=== PATIENT | male | born 1935 | race Caucasian/White ===

== ENCOUNTER → 2016-09-27 | Outpatient (REF) | payer MEDICARE, BC ==
[~2016-09-27] MED LIST: /WARF4TA; CARD240T3; DIGO0.12 PO; DIGO0.126; GAS-80CH; HUMA100I5 SC; HUMA75VL; KLOR1TAB77 PO; KRIL300C PO; LASI80TA; LEVEINJ SC; LISI40TA; MIRA3350 PO; PROA1AER IN; TORS100T PO; TYLE325T5 PO; VITA100037 PO; WARF-18 PO; WARF-23 PO; levemir
== END ==
LOC: M LAB REF 16:38
PROVIDERS: ATTEND Internal Medicine
DX: I48.2 Chronic atrial fibrillation (principal)

== ENCOUNTER → 2017-03-09 | Outpatient (CLI) | payer MEDICARE, BC ==
[~2017-03-09] MED LIST changes: -PROA1AER IN; +PROAAER10 IN; -VITA100037 PO; +VITA100067 PO
--- NOTE | 2017-03-09 15:42 | REP ---
Left elbow four views: There is mild osteoarthritis. There is a joint effusion. There is no fracture or dislocation. No calcifications or foreign bodies. Signed by Camilo Conway MD 03/09/2017 03:32 P
== END ==
LOC: M WUC 13:10
PROVIDERS: ATTEND Physician Assistant
DX: S50.02XA Contusion of left elbow, initial encounter (principal); X58.XXXA Exposure to other specified factors, initial encounter; Y92.89 Other specified places as the place of occurrence of the external cause; Y93.89 Activity, other specified; Y99.8 Other external cause status

== ENCOUNTER 2017-06-27 15:09 | Inpatient (IN) | payer MEDICARE, BC ==
[~2017-06-27] VITALS: Ht 188 cm; Wt 83.8 kg
[2017-06-27] MEDS ORDERED: XARE20TA PO (15:35)
[2017-06-27] MEDS ORDERED: LINZ290C PO (15:39)
[2017-06-27 16:57] LABS: BASO % 0.1 % (0.0-1.0); IMMATURE GRANULOCYTE % 0.3 % (0-0); LYMPH # 0.3 10^3/uL (1.5-4.5); LYMPH % 2.3 % (24.0-44.0); MEAN CORPUSCULAR VOLUME 96.7 fl (80.0-96.0); MONO % 7.1 % (0.0-5.0); NEUTROPHILS # 12.8 10^3/uL (1.8-7.7); NEUTROPHILS % 90.2 % (36.0-66.0); PLATELET COUNT, AUTOMATED 176 10^3/uL (150-450); WHITE BLOOD COUNT 14.2 10^3/uL (4.0-10.0)
[2017-06-27 17:10] LABS: ALBUMIN 4.4 GM/DL (3.2-5.2); ALBUMIN/GLOBULIN RATIO 1.13 (1.00-1.93); BILIRUBIN,DIRECT 0.3 MG/DL (0.0-0.2); BILIRUBIN,TOTAL 0.9 MG/DL (0.2-1.0); CREATININE FOR GFR 1.46 MG/DL (0.70-1.30); GLOMERULAR FILTRATION RATE 49.1 (>35); TOTAL PROTEIN 8.3 GM/DL (6.4-8.2)
[2017-06-27] MEDS ORDERED: NS 1,000 ML IV ONE (17:45)
[2017-06-27] MEDS ORDERED: D5W/0.45% SODIUM CHLORIDE 1,000 ML IV SCH (17:45)
[2017-06-27] MEDS ORDERED: IPRATROPIUM 0.5MG/ALBUTEROL 2.5MG INH SOL UD 3ML (DUONEB)(J7620) NEB ONE (18:00)
--- NOTE | 2017-06-27 18:03 | REP ---
ABDOMEN, TWO VIEWS: HISTORY: Distention. There is marked distention of the colon. There are no air fluid levels. There is no pneumoperitoneum. IMPRESSION: Findings consistent with megacolon. Signed by Larry Dillon MD 06/27/2017 06:14 P
--- NOTE | 2017-06-27 18:16 | REP ---
CHEST, ONE VIEW: HISTORY: Shortness of breath. A single lateral radiograph was obtained. There is diffuse distension of the visualized colon. 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 Signed by Larry Dillon MD 06/27/2017 06:27 P
[2017-06-27] MEDS ORDERED: TORS20TA2 PO (18:45)
--- NOTE | 2017-06-27 19:30 | REPUSA ---
CT of the abdomen and pelvis without contrast Clinical statement: Pain. Possible volvulus. Technique: Multiple axial CT images were obtained from the base of the lungs to the floor of the pelv is utilizing 5 mm axial slices without administration of contrast. Coronal and sagittal reconstructio ns were also obtained. Comparison: 03/18/2014. Findings: Chest: The visualized lung bases demonstrate bilateral lower lobe infiltrates. Abdomen: The kidneys are normal in size bilaterally. There is no evidence of hydronephrosis or nephro lithiasis. The liver, spleen, pancreas, gallbladder and adrenal glands are unremarkable. The aorta de monstrates normal caliber and contour. There is no abdominal lymphadenopathy or ascites. Pelvis: Severe megacolon with diffuse gaseous distention is noted. Mild amount of stool is seen in th e right colon. A large fluid level is seen in the rectosigmoid colon. A focal site of obstruction is identified. The urinary bladder is within normal limits. There is no pelvic lymphadenopathy or ascite s. The other pelvic structures appear unremarkable. Bones: There are no suspicious osseous abnormalities seen. Impression: 1. Severe gases distention of the colon, consistent with megacolon. These findings are similar to the prior study. Air fluid level is seen in the rectosigmoid colon. No discrete evidence of obstruction or volvulus is seen at the site. Follow-up is recommended as clinically indicated. Barium enema study could be helpful. Colonoscopy may be helpful. 2. Bilateral lower lobe infiltrates.
[2017-06-27] MEDS ORDERED: CEFTRIAXONE SOD 1 GM in APPROPRIATE DILUENT 1 EA IV ONE (19:45)
[2017-06-27] MEDS ORDERED: AZITHROMYCIN INJ 500 MG, VIAL MATE ADAPTER 1 EACH in D5W 250 ML IV ONE (19:45)
[2017-06-27] MEDS ORDERED: ONDANSETRON 4MG/2ML VIAL (J2405) IV PRN (20:15)
[2017-06-27] MEDS ORDERED: DEXTROSE 50% 50 ML SYRINGE IV PRN (20:15)
[2017-06-27] MEDS ORDERED: GLUCOSE 4 GM CHEW TABLET PO PRN (20:15)
[2017-06-27] MEDS ORDERED: MORPHINE 2 MG/ML 1ML SYRINGE IV PRN (20:15)
[2017-06-27] MEDS ORDERED: GLUCAGON FOR INJ 1 MG VIAL (J1610) SC PRN (20:15)
[2017-06-27] MEDS ORDERED: ALBUTEROL SULFATE 2.5 MG/0.5 ML INH NEB SOLN NEB PRN (20:30)
[2017-06-27] MEDS ORDERED: ALBUTEROL 90 MCG/ACT 8GM HFA INHALER INH PRN (20:30)
--- NOTE | 2017-06-27 21:01 | HPE ---
DATE OF ADMISSION: 06/27/2017 PRIMARY CARE PROVIDER: Dr. Townsend HISTORY OF PRESENT ILLNESS: The patient is an 82-year-old male with a past medical history significant for chronic kidney disease, stage III, atrial fibrillation, diabetes, obstructive sleep apnea (BEN), bladder cancer status post transurethral resection of bladder tumor (TURBT) presented to [facility] on 06/23/2017 for worsening abdominal distention. Per patient, since 1-1/ 2 weeks ago patient started to notice his abdomen started to increase in size. Patient also started to notice some liquid stool for the last week, and patient also started to complain about right-sided abdominal pain. Due to abdominal distention, patient also noted to have increased shortness of breath. Later on, patient also started to have colored sputum production, which is not normal for him. Patient denies any recent antibiotic use. Denied any fevers or chills. Similar episode of abdominal distention occurred in the past. 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 Patient had a colonoscopy with suction performed during hospitalization stay. PAST MEDICAL HISTORY: 1. Chronic kidney disease, stage III. 2. Atrial fibrillation, on digoxin and Xarelto. 3. Diabetes. 4. History of high-grade bladder cancer in 2008 status post TURBT and BCG induction. 5. BEN, not compliant with continuous positive airway pressure (CPAP). 6. Diabetic neuropathy. 7. Basal cell on the nose. 8. Severe aortic stenosis, echocardiogram done in February 2014. PAST SURGICAL HISTORY: 1. Appendectomy. 2. TURBT. HOME MEDICATIONS: - insulin Levemir 12 units subcutaneous every evening - potassium chloride 600 mg by mouth daily - Xarelto 20 mg by mouth daily - torsemide 140 mg by mouth daily - Linzess 290 mcg by mouth daily - digoxin 0.125 mg by mouth daily SOCIAL HISTORY: Quit smoking approximately 30 years ago. No alcohol use. No recreational drug use. Per record, patient DO NOT RESUSCITATE, DO NOT INTUBATE, confirmed with his daughter, who is also present at the bedside. REVIEW OF SYSTEMS: GENERAL: Denies any fevers or chills. HEENT: No vision change. No auditory changes. CARDIOVASCULAR: No chest pain. No palpitations. History of atrial fibrillation. RESPIRATORY: Complained about increased shortness of breath with sputum production, which is not normal for him. GASTROINTESTINAL: Worsening abdominal distention in the last 1-1/2 weeks, now complains about completely liquid stool. No recent antibiotic use. Similar episode occurred in the past. MUSCULOSKELETAL: Denies any new joint pain or abdominal pain. NEUROLOGIC: History of diabetic neuropathy. OBJECTIVE: VITAL SIGNS: Temperature is 97.8, pulse is 105, respirations 21, blood pressure is 129/80, pulse oximetry 91% in room air. GENERAL: Mild to moderate distress secondary to severe abdominal distention. Alert and oriented times three. HEENT: Significantly decreased voice. Otherwise Normocephalic, atraumatic. CARDIOVASCULAR: Irregularly irregular, intermittent tachycardia. RESPIRATORY: Positive crackles in the bilateral lung base. No wheezes appreciated. ABDOMEN: Severe abdominal distention. Tenderness to palpation. Hypoactive bowel sounds. EXTREMITIES: Some venous stasis changes, bilateral lower extremities. No significant swelling. NEUROLOGIC: Sensation to fine touch grossly intact. LABORATORY DATA: WBC is 14.2, hemoglobin 15.4, hemoglobin 46.6, platelet count is 176. Sodium is 142, potassium 4, chloride 99, carbon dioxide is 36, BUN 35, creatinine 1.46, GFR is 49.1, fasting glucose 193, calcium 10. Total bilirubin 0.9, direct bilirubin 0.3, AST 17, ALT is 22, alkaline phosphatase is 80, total CK 72, troponin I is 0.05, total protein is 8.3, albumin 4.4. IMAGING STUDIES: Abdominal x-ray showed findings consistent with megacolon. CT abdomen and pelvis without contrast showed severe gas and distention in the colon consistent with varsha colon. No discrete evidence of obstruction or volvulus is seen at the site. Bilateral lower lobe infiltrate. ASSESSMENT AND PLAN: 1. Severe abdominal distention. Patient admitted to medical/surgical floor under inpatient status. General surgery, Dr. Whittington, has been consulted, who recommends neostigmine; however, patient will start the trial when patient arrives to progressive care unit (PCU), because this medication carries significant risk of bradycardia. Currently patient is still in emergency room. Patient is placed nothing by mouth. Multiple attempts of nasogastric (NG) tube have failed. There is a possibility patient may benefit from a colonoscopy. 2. Atrial fibrillation. Continue digoxin. Patient is currently nothing by mouth. Xarelto on hold. Patient will be on therapeutic dose of Lovenox. 3. Bilateral lower lobe infiltrate. Followup with sputum samples. Followup with blood cultures. Patient empirically started on Rocephin and azithromycin. 4. Megacolon with liquid stool. No recent antibiotic use. Followup with a gastrointestinal (GI) panel. 5. Chronic kidney disease, stage III. Continue to monitor. 6. Diabetes. Currently nothing by mouth. Continue sliding scale every 6 hours. 7. Patient has history of high-grade bladder cancer status post transurethral resection of bladder tumor (TURBT) and BCG induction. 8. Obstructive sleep apnea (BEN), noncompliant with CPAP, on BEN protocol. 9. Diabetic neuropathy. 10. Deep vein thrombosis (DVT) prophylaxis, on Lovenox. Addendum Patient is not able to transferred to PCU room and he continues staying in critical room in ED with cardiac telemetry. Neostigmine is transfusing over 17min. Near the end of transfusion, patient developed bradycardia with heart rate around 50. One dose of atropine was given. Since then, patient heart rate has returned to his baseline average. I have been present in the ED for 45 minutes since the transfusion. MTDD
[2017-06-27 21:05] LABS: MAGNESIUM LEVEL 2.3 MG/DL (1.8-2.4)
[2017-06-27] MEDS ORDERED: ATROPINE SULF 1MG/10ML SYRINGE (J0461) IV PRN (21:15)
[2017-06-27] MEDS ORDERED: NEOSTIGMINE METHYLSULFATE INJ 2 MG in NS 50 ML IV ONE (21:15)
[2017-06-27 21:33] LABS: ERYTHROCYTE SEDIMENTATION RATE 4 mm/hr (0-20)
[2017-06-27] MEDS: NS 1,000 ML IV SCH (21:48)
[2017-06-27] MEDS: ENOXAPARIN 80 MG/0.8 ML SYRINGE (J1650) SC SCH (21:48)
--- NOTE | 2017-06-28 04:09 | CR.PDOC ---
General Surgery Consultation Date of Consultation 06/28/17 History and Physical CONSULT REPORT FOR: Ashely Vinson DO REASON FOR CONSULTATION: abdominal distention HISTORY OF PRESENT ILLNESS: Patient is an 82-year-old male who presented with one and a half week's history of increasing abdominal distention with resulting discomfort secondary to the abdominal distention. Patient has had previous episodes of similar symptoms. 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 He underwent decompression colonoscopy. Since then has had intermittent problems with periods of abdominal distention. His daughter reports that he has been at this point incontinent to stool and urine and is not sure whether he is able to move his bowels regularly. He had previously seen Dr. Melendrez in the clinic was recommended Linzess with varying results. Since the colonoscopy in 2008 has not had any other workup for this problem. The colonoscopy at that time was unprepped. He has had a previous colonoscopy [place] [address] Gutierrez. This current problem apparently has started nearly 2 weeks now with increasing distention, discomfort from the distention, shortness of breath secondary to the abdominal distention. Patient denies any cramping or abdominal pain though mostly discomfort is on the right lower quadrant area. He is also reporting some increased sputum production, productive cough for the past week. He denies any fevers or chills. No gross bleeding with bowel movements reported. He still apparently lives mainly independently close to the house of his daughter though for the past few months have been easily tired. He is able to ambulate, get out of the house. He is not on any new medications that with a prompted this symptom. Not on any chronic narcotics, antipsychotic medications, central acting medications. PAST MEDICAL HISTORY: 1. Chronic kidney disease, stage III. 2. Atrial fibrillation, on digoxin and Xarelto. 3. Diabetes. 4. History of high-grade bladder cancer in 2008 status post TURBT and BCG induction. 5. BEN, not compliant with continuous positive airway pressure (CPAP). 6. Diabetic neuropathy. 7. Basal cell on the nose. 8. Severe aortic stenosis, echocardiogram done in February 2014. PAST SURGICAL HISTORY: INCLUDES: 1. Appendectomy. 2. TURBT. 3. Unprepped colonoscopy for abdominal decompression [address] Owen ALLERGIES: Please see below. HOME MEDICATIONS: Please see below. REVIEW OF SYSTEMS: GENERAL: No abnormal unexplained weight loss. HEENT: Denies blurred vision and double vision. Denies ear symptoms. Denies hoarseness. NECK: Denies any neck pain]. CARDIOVASCULAR: Denies chest pain and palpitations. MUSCULOSKELETAL: Denies arthralgias, back pain and thrombophlebitis. SKIN: Denies rash. NEUROLOGIC: Denies headache, stroke and transient ischemic attack. PSYCHIATRIC: Denies anxiety and depression. ENDOCRINE: Denies thyroid disease. HEMATOLOGY/ONCOLOGY: Denies bleeding or clotting disorder. Patient on Xarelto for atrial fibrillation HEART: Denies any chest pains, palpitations, paroxysmal dyspnea, orthopnea. Reports history of CHF. On Xarelto for chronic atrial fibrillation PULMONARY: Reports productive sputum for the past week. GASTROINTESTINAL: See HPI. GENITOURINARY: History of bladder cancer, incontinent to urine. ENDOCRINE: Denies polydipsia, polyphagia, polyuria, heat or cold intolerance. INFECTIOUS: No recent antibiotic use though increased productive sputum. NUTRITION: Fair appetite. PHYSICAL EXAMINATION: VITALS SIGNS: Please see below. GENERAL APPEARANCE:Patient seen, laying in bed, awake, alert, and oriented. Mildly uncomfortable and short of breath secondary to coughing and abdominal distention SKIN: Warm and dry HEENT: Normocephalic, atraumatic. Mildly pale palpebral conjunctiva, anicteric sclerae. Lips and mucosa appear dry NECK: Supple, no thyromegaly. No obvious jugular venous distention. LUNGS: Clear to auscultation bilaterally. No wheezing appreciated. HEART: No chest wall abnormalities. Irregular heart rate. ABDOMEN: Abdomen is , markedly distended, thin abdominal wall. He has a right lower quadrant vertical incision from previous appendectomy. No umbilical or groin hernias. Tympanitic to percussion. Tensely distended minimal discomfort with palpation centered on the right lower quadrant area and no rebound or guarding EXTREMITIES: Extremities have no deformities. Mild edema ANCILLARIES: . LABORATORY DATA: Please see below. IMAGING STUDIES: . CT abdomen and pelvis 1. Severe gases distention of the colon, consistent with megacolon. These findings are similar to the prior study. Air fluid level is seen in the rectosigmoid colon. No discrete evidence of obstruction or volvulus is seen at the site. Follow-up is recommended as clinically indicated. Barium enema study could be helpful. Colonoscopy may be helpful. 2. Bilateral lower lobe infiltrates. IMPRESSION AND PLAN: . 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 He did have previous episodes of severe abdominal distention probably the admission in 2008. He has not had a full workup on the reason why he appears to be prone to colonic distention. I recommend doing a noncontrast CT for now mainly to rule out volvulus though on review of the abdominal x-ray, this does not have the typical picture of volvulus and there is also some small bowel distention. Given patient's heart abdominal distention, recommend trial of neostigmine to see if he will be able to at least partially decompress. He needs to be monitored for severe bradycardia with administration of neostigmine. If he does not improve, would do an unprepped colonoscopy to decompress the colon. The main problem given his medical comorbidities is how to prevent this from happening. Given severe aortic stenosis he will not be a candidate for general anesthesia , abdominal surgery After discussion with the hospitalist, he was given neostigmine. Unfortunately though he was given as an IV drip instead of an IV push which probably dedicated its effect. Likewise acting was given to early when his heart rate just came down to 50 and he remained hemodynamically stable. He related the did pass gas and had some liquid stools which afforded him relief. He was scheduled to undergo unprepped colonoscopy with me but after getting some relief with passage of gas patient refused further colonoscopy. I discussed this with his daughter who was at the bedside. For now will give him some bowel regimen to see if we can get him to move his bowels. I think this is all chronic and on good risk patient probably should get further workup for consideration for subtotal colectomy for chronic: Inertia and megacolon as I don't think this will return back to normal. Unfortunately he is not a surgical candidate given her history of severe aortic stenosis. Vital Signs Vital Signs Date Time Temp Pulse Resp B/P (MAP) Pulse Ox O2 Delivery O2 Flow Rate FiO2 06/28/17 00:33 76 98 06/28/17 00:22 120/69 (86) 06/27/17 15:11 97.8 21 Room Air Laboratory Data Labs 24H Laboratory Tests 2 06/27/17 16:39: Immature Granulocyte % (Auto) 0.3H, White Blood Count 14.2H, Red Blood Count 4.82, Hemoglobin 15.4, Hematocrit 46.6, Mean Corpuscular Volume 96.7H, Mean Corpuscular Hemoglobin 32.0, Mean Corpuscular Hemoglobin Concent 33.0, Red Cell Distribution Width 15.0H, Platelet Count 176, Neutrophils (%) (Auto) 90.2H, Lymphocytes (%) (Auto) 2.3L, Monocytes (%) (Auto) 7.1H, Eosinophils (%) (Auto) 0.0, Basophils (%) (Auto) 0.1, Neutrophils # (Auto) 12.8H, Lymphocytes # (Auto) 0.3L, Monocytes # (Auto) 1.0H, Eosinophils # (Auto) 0.0, Basophils # (Auto) 0.0 , Immature Granulocyte # (Auto) 0.0, Nucleated Red Blood Cells % (auto) 0.0, Erythrocyte Sedimentation Rate 4, Anion Gap 7L, Glomerular Filtration Rate 49.1 , Calcium Level 10.0, Magnesium Level 2.3, Aspartate Amino Transf (AST/SGOT) 17 , Alanine Aminotransferase (ALT/SGPT) 22, Alkaline Phosphatase 80, Total Bilirubin 0.9, Direct Bilirubin 0.3H, Total Creatine Kinase 72, Creatine Kinase MB 3.4, Creatine Kinase MB Relative Index 4.72H, Troponin I 0.05, C-Reactive Protein, Quantitative 1.00H, Total Protein 8.3H, Albumin 4.4, Albumin/Globulin Ratio 1.13, Lipase 106 06/28/17 01:00: Bedside Glucose (Misc Panel) 153H CBC/BMP Laboratory Tests 06/27/17 16:39 Red Blood Count 4.82, Mean Corpuscular Volume 96.7 H, Mean Corpuscular Hemoglobin 32.0, Mean Corpuscular Hemoglobin Concent 33.0, Red Cell Distribution Width 15.0 H, Neutrophils (%) (Auto) 90.2 H, Lymphocytes (%) (Auto ) 2.3 L, Monocytes (%) (Auto) 7.1 H, Eosinophils (%) (Auto) 0.0, Basophils (%) ( Auto) 0.1, Neutrophils # (Auto) 12.8 H, Lymphocytes # (Auto) 0.3 L, Monocytes # (Auto) 1.0 H, Eosinophils # (Auto) 0.0, Basophils # (Auto) 0.0 Microbiology Microbiology 06/27/17 Blood Culture, Received Pending 06/27/17 Blood Culture, Received Pending Home Medications Scheduled Digoxin (Digoxin) 0.125 Mg Tab, 0.125 MG PO DAILY, (Reported) Insulin Detemir (Levemir Flexpen) 100 Unit/Ml Inj, 12 UNITS SC QPM, (Reported) Linaclotide Base (Linzess) 290 Mcg Cap, 290 MCG PO DAILY, (Reported) Potassium Chloride (Klor-Con M20) 20 Meq Tabcr, 60 MEQ PO DAILY, (Reported) Rivaroxaban (Xarelto) 20 Mg Tab, 20 MG PO DAILY, (Reported) Torsemide (Torsemide) 100 Mg Tab, 100 MG PO DAILY, (Reported) TAKES WITH 40MG DOSE FOR TOTAL OF 140MG Torsemide (Torsemide) 20 Mg Tab, 40 MG PO DAILY, (Reported) TAKES WITH 100MG DOSE FOR TOTAL 140MG Scheduled PRN Albuterol Sulfate (Proair Hfa) 108 Mcg/Act Aer, 2 PUFFS IN Q4HP PRN for RESPIRATORY DISTRESS, (Reported) Allergies Coded Allergies: Penicillins (Verified Allergy, Unknown, 06/27/17) Pioglitazone (Unverified Allergy, Unknown, NOT KNOWN , 03/18/14) Rosiglitazone (Unverified Allergy, Unknown, UNKNOWN, 03/18/14) RICCARDO CORONA MD Jun 28, 2017 04:09
--- NOTE | 2017-06-28 05:07 | IPN ---
DATE: 06/28/2017 ADDENDUM TO THE HISTORY AND PHYSICAL: Approximately 4 o'clock in the morning, I was called to reevaluate the patient who was being held in the emergency room. The patient's abdominal distention seems to progressively get worse in the few hours since admission. Discussed with the patient and the patient finally agreed for allowing the staff to re-attempt a nasogastric (NG) tube. Shortly after the NG tube was placed and was successful with continuous suction, the patient's abdominal distention showed gradual improvement. Now more air is being suctioned out of his abdomen, the patient stated he feels significant improvement.
[2017-06-28] MEDS: HumaLOG INSULIN (NovoLOG) PER UNIT SC SCH ×5 (05:51→20:28)
[2017-06-28] MEDS ORDERED: HEPARIN SOD (PORCINE) 5000 UNITS/ML VIAL SC SCH (06:00)
--- NOTE | 2017-06-28 06:55 | ECGEPIP ---
Stationary ECG Study [facility] - ED Test Date: 2017-06-27 Pat Name: MARIANO CARLOS Department: Room: [place] [address] Gender: M Talkback Host: : [phone] Requested By: ZOFIA WESLEY Order Number: [id number] Reading MD: Sergey Camarena Measurements Intervals [place] Rate: 74 P: AK: 0 QRS: -26 QRSD: 103 T: 180 QT: 328 QTc: 365 Interpretive Statements ATRIAL FIBRILLATION BORDERLINE LEFT AXIS DEVIATION MODERATE VOLTAGE CRITERIA FOR LVH, CONSIDER NORMAL VARIANT ANTEROLATERAL ST-T WAVE ABNORMALITIES, CONSIDER ISCHEMIA RATE CHANGE COMPARED TO 08/27/13 Electronically Signed On 06-28-2017 6:55:29 EST by Sergey Camarena
[2017-06-28 08:39] LABS: MEAN CORPUSCULAR HEMOGLOBIN 31.7 pg (27.0-33.0); MEAN CORPUSCULAR HGB CONC 32.9 g/dl (32.0-36.5); MEAN CORPUSCULAR VOLUME 96.3 fl (80.0-96.0); PLATELET COUNT, AUTOMATED 157 10^3/uL (150-450); WHITE BLOOD COUNT 9.6 10^3/uL (4.0-10.0)
[2017-06-28] MEDS ORDERED: FLEET OIL RETENTION ENEMA PR SCH (09:00)
[2017-06-28 09:03] LABS: CREATININE FOR GFR 1.34 MG/DL (0.70-1.30); GLOMERULAR FILTRATION RATE 54.2 (>35)
[2017-06-28 09:21] LABS: POTASSIUM SERUM 2.9 MEQ/L (3.5-5.1)
[2017-06-28] MEDS: DIGOXIN 0.125 MG TAB PO SCH (10:18)
[2017-06-28] MEDS: ENOXAPARIN 80 MG/0.8 ML SYRINGE (J1650) SC SCH (10:18)
[2017-06-28 10:23] LABS: MAGNESIUM LEVEL 2.4 MG/DL (1.8-2.4); POTASSIUM SERUM 2.9 MEQ/L (3.5-5.1)
[2017-06-28] MEDS: KCL 10MEQ IN 100ML SWI (KRUN) 10 MEQ in APPROPRIATE DILUENT 1 EA IV SCH ×8 (10:48→14:08)
--- NOTE | 2017-06-28 13:12 | IPNPDOC ---
Subjective Date Seen The patient was seen on 06/28/17. Subjective Chief Complaint/HPI The patient is a 82-year-old male admitted with a reason for visit of Bowel Obstruction;Megacolon. Events since last encounter Patient says that he feels 100% better, Says his abdomen is much less distended and softer. No fever or chills, no abdominal pain today, no nausea or vomiting. Has been passing gas. Has NG tube in place. Does say that he has lost his voice which often happens at home also. Also has some chronic cough and difficult to clear secretions at the throat. Objective Physical Examination General Exam: Positive: Alert, Cooperative, No Acute Distress Eye Exam: Positive: PERRLA, Conjunctiva & lids normal, EOMI, Negative: Sclera icteric ENT Exam: Positive: Atraumatic, Tongue Midline Neck Exam: Positive: Supple, Negative: JVD, thyromegaly Chest Exam: Positive: Clear to auscultation, Normal air movement Heart Exam: Positive: Rate Normal, Regular Rhythm, Normal S1, Normal S2, Negative: Murmurs, Rubs Abdomen Exam: Positive: Normal bowel sounds, Soft, Other (Massive distention still present. ), Negative: Tenderness, Hepatospenomegaly, Mass Extremity Exam: Positive: Normal pulses, Negative: Clubbing, Cyanosis, Edema Skin Exam: Positive: Nl turgor and temperature, Negative: Rash, Breakdown Assessment /Plan Problems (1) Acute dilatation of the colon syndrome Status: Acute Problem Text: will continue with NG to suction, IVF. Allow sips of water by mouth. patient refused colonoscopy , did have a bowel movement so will start on bowel regimen Surgery following. 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 (2) Acute kidney injury (nontraumatic) Status: Acute (3) Aortic stenosis Status: Chronic Problem Text: Has severe aortic stenosis. (4) A-fib Status: Chronic Problem Text: will continue digoxin , will hold xarelto for now. (5) Diabetes Status: Chronic (6) Bladder cancer Status: Chronic Problem Text: History of TURBT and BCG instillation (7) BEN (obstructive sleep apnea) Status: Chronic (8) Pulmonary hypertension Status: Chronic Plan/VTE VTE Prophylaxis Ordered?: Yes VS, I&O, 24H, Fishbone Vital Signs/I&O Vital Signs Date Time Temp Pulse Resp B/P (MAP) Pulse Ox O2 Delivery O2 Flow Rate FiO2 06/28/17 11:52 99.0 84 100 Nasal Cannula 2.0 06/28/17 11:33 104/57 (73) 06/28/17 07:37 20 Laboratory Data 24H LABS Laboratory Tests 2 06/27/17 16:39: Immature Granulocyte % (Auto) 0.3H, White Blood Count 14.2H, Red Blood Count 4.82, Hemoglobin 15.4, Hematocrit 46.6, Mean Corpuscular Volume 96.7H, Mean Corpuscular Hemoglobin 32.0, Mean Corpuscular Hemoglobin Concent 33.0, Red Cell Distribution Width 15.0H, Platelet Count 176, Neutrophils (%) (Auto) 90.2H, Lymphocytes (%) (Auto) 2.3L, Monocytes (%) (Auto) 7.1H, Eosinophils (%) (Auto) 0.0, Basophils (%) (Auto) 0.1, Neutrophils # (Auto) 12.8H, Lymphocytes # (Auto) 0.3L, Monocytes # (Auto) 1.0H, Eosinophils # (Auto) 0.0, Basophils # (Auto) 0.0 , Immature Granulocyte # (Auto) 0.0, Nucleated Red Blood Cells % (auto) 0.0, Erythrocyte Sedimentation Rate 4, Anion Gap 7L, Glomerular Filtration Rate 49.1 , Estimated Mean Plasma Glucose 146H, Hemoglobin A1c 6.7, Calcium Level 10.0, Magnesium Level 2.3, Aspartate Amino Transf (AST/SGOT) 17, Alanine Aminotransferase (ALT/SGPT) 22, Alkaline Phosphatase 80, Total Bilirubin 0.9, Direct Bilirubin 0.3H, Total Creatine Kinase 72, Creatine Kinase MB 3.4, Creatine Kinase MB Relative Index 4.72H, Troponin I 0.05, C-Reactive Protein, Quantitative 1.00H, Total Protein 8.3H, Albumin 4.4, Albumin/Globulin Ratio 1.13 , Lipase 106 06/28/17 01:00: Bedside Glucose (Misc Panel) 153H 06/28/17 05:49: Bedside Glucose (Misc Panel) 89 06/28/17 08:33: Nucleated Red Blood Cells % (auto) 0.0, Anion Gap 10, Glomerular Filtration Rate 54.2, Calcium Level 9.0, Blood Urea Nitrogen 36H, Creatinine 1.34H, Sodium Level 144, Potassium Level 2.9#*L, Chloride Level 104, Carbon Dioxide Level 30 06/28/17 09:54: Magnesium Level 2.4 06/28/17 12:29: Bedside Glucose (Misc Panel) 126H CBC/BMP Laboratory Tests 06/27/17 16:39 Red Blood Count 4.82, Mean Corpuscular Volume 96.7 H, Mean Corpuscular Hemoglobin 32.0, Mean Corpuscular Hemoglobin Concent 33.0, Red Cell Distribution Width 15.0 H, Neutrophils (%) (Auto) 90.2 H, Lymphocytes (%) (Auto ) 2.3 L, Monocytes (%) (Auto) 7.1 H, Eosinophils (%) (Auto) 0.0, Basophils (%) ( Auto) 0.1, Neutrophils # (Auto) 12.8 H, Lymphocytes # (Auto) 0.3 L, Monocytes # (Auto) 1.0 H, Eosinophils # (Auto) 0.0, Basophils # (Auto) 0.0 06/28/17 08:33 Red Blood Count 4.58, Mean Corpuscular Volume 96.3 H, Mean Corpuscular Hemoglobin 31.7, Mean Corpuscular Hemoglobin Concent 32.9, Red Cell Distribution Width 15.0 H, Calcium Level 9.0 06/28/17 09:54 Microbiology Microbiology 06/27/17 Blood Culture, Received Pending 06/27/17 Blood Culture, Received Pending SOWMYA KEANE MD Jun 28, 2017 13:12
[2017-06-28] MEDS: MOM 30ML SUSPENSION UDC PO SCH ×2 (13:23→20:30)
[2017-06-28 14:00] VITALS: BP 116/56
[2017-06-28] MEDS: POTASSIUM CHLORIDE 10 MEQ SR TABLET PO SCH ×2 (14:00→20:31)
[2017-06-28 20:00] VITALS: BP 105/53
[2017-06-28] MEDS ORDERED: AZITHROMYCIN INJ 500 MG, VIAL MATE ADAPTER 1 EACH in D5W 250 ML IV SCH (20:00)
[2017-06-28] MEDS: NS 1,000 ML IV SCH (20:31)
[2017-06-28] MEDS ORDERED: CEFTRIAXONE SOD 2 GM in APPROPRIATE DILUENT 1 EA IV SCH (21:00)
[2017-06-29] VITALS (7 sets, daily range): BP systolic 98–113; BP diastolic 51–84
[2017-06-29 05:10] LABS: MEAN CORPUSCULAR HEMOGLOBIN 32.1 pg (27.0-33.0); MEAN CORPUSCULAR HGB CONC 32.6 g/dl (32.0-36.5); MEAN CORPUSCULAR VOLUME 98.5 fl (80.0-96.0); PLATELET COUNT, AUTOMATED 111 10^3/uL (150-450); RED CELL DISTRIBUTION WIDTH 15.3 % (11.5-14.5)
[2017-06-29 05:24] LABS: ANION GAP 9 MEQ/L (8-16); BLOOD UREA NITROGEN 35 MG/DL (7-18); CALCIUM LEVEL 8.1 MG/DL (8.8-10.2); CARBON DIOXIDE LEVEL 30 MEQ/L (21-32); CHLORIDE LEVEL 108 MEQ/L (98-107); CREATININE FOR GFR 1.21 MG/DL (0.70-1.30); GLOMERULAR FILTRATION RATE > 60.0 (>35); GLUCOSE, FASTING 111 MG/DL (83-110); MAGNESIUM LEVEL 2.6 MG/DL (1.8-2.4); POTASSIUM SERUM 2.8 MEQ/L (3.5-5.1); SODIUM LEVEL 147 MEQ/L (136-145)
[2017-06-29] MEDS: NS 1,000 ML IV SCH (05:36)
[2017-06-29] MEDS ORDERED: KCL 10MEQ IN 100ML SWI (KRUN) 10 MEQ in APPROPRIATE DILUENT 1 EA IV ONE ×8 (05:45→07:45)
[2017-06-29] MEDS: KCL 40MEQ in NS 1000ML 1,000 ML IV SCH ×2 (06:37→22:57)
[2017-06-29] MEDS: HumaLOG INSULIN (NovoLOG) PER UNIT SC SCH ×4 (07:30→20:53)
--- NOTE | 2017-06-29 08:35 | IPNPDOC ---
Subjective General Date/Time Seen The patient was seen on 06/29/17 at 08:31. Subject Chief Complaint/History The patient is a 82-year-old male admitted with a reason for visit of abdominal distention, Denise syndrome Patient was able to pass flatus and have bowel movements yesterday. He was given milk of magnesia as well as fleets enema. His abdomen remains markedly rounded but a lot softer now. He reports he is hungry and wants to eat. He denies any abdominal discomfort at this time. Current Medications Current Medications Current Medications Albuterol Sulfate (Proventil Neb) 2.5 mg Q4HP PRN NEB SOB/WHEEZING; Start 06/27 at 20:30; Stop 07/27/17 at 20:29 Albuterol Sulfate (Proventil, Ventolin Hfa) 2 puff Q4HP PRN INH RESPIRATORY DISTRESS; Start 06/27/17 at 20:30; Stop 06/28/17 at 13:13; Status DC Atropine Sulfate (Atropine Sulfate) 0.5 mg Q1HP PRN IV BRADYCARDIA Last administered on 06/27/17 22:24; Start 06/27/17 at 21:15; Stop 07/27/17 at 21:14 Azithromycin 500 mg/IV Miscellaneous Supplies 1 each/ Dextrose 255 ml @ 255 mls /hr Q24H IV ; Start 06/28/17 at 20:00; Stop 06/28/17 at 20:00; Status DC Ceftriaxone Sodium 2 gm/IV Miscellaneous Supplies 20 ml @ 40 mls/hr Q12H IV ; Start 06/28/17 at 21:00; Stop 06/28/17 at 21:00; Status DC Dextrose (Dextrose 50%) 25 ml ASDIRECTED PRN IV SEE LABEL COMMENTS; Start 06/27 at 20:15; Stop 07/27/17 at 20:14 Dextrose/Sodium Chloride 1,000 ml @ 125 mls/hr Q8H IV Last administered on 20:38; Start 06/27/17 at 17:45; Stop 06/27/17 at 21:09; Status DC Digoxin (Lanoxin) 0.125 mg DAILY PO Last administered on 06/28/17 10:18; Start 06/28/17 at 09:00; Stop 07/28/17 at 08:59 Enoxaparin Sodium (Lovenox) 30 mg DAILY SC ; Start 06/29/17 at 09:00; Stop 07/09 at 08:59 Enoxaparin Sodium (Lovenox) 80 mg Q12H SC Last administered on 06/28/17 10:18 ; Start 06/27/17 at 21:00; Stop 06/28/17 at 13:13; Status DC Glucagon (Glucagon) 1 mg ASDIRECTED PRN SC SEE LABEL COMMENTS; Start 06/27/17 at 20:15; Stop 07/27/17 at 20:14 Glucose (Glucose) 16 GM ASDIRECTED PRN PO SEE LABEL COMMENTS; Start 06/27/17 at 20:15; Stop 07/27/17 at 20:14 Heparin Sodium (Porcine) (Heparin) 5,000 units Q8H SC ; Start 06/28/17 at 06:00 ; Stop 06/28/17 at 06:00; Status DC Home Med (Med Rec Complete!) ASDIRECTED XX ; Start 06/27/17 at 19:00; Stop 06/27/17 at 19:00; Status DC Insulin Human Lispro (HumaLOG INSULIN) SEE PROTOCOL TABLE Q6H SC Last administered on 06/28/17 13:23; Start 06/28/17 at 00:00; Stop 06/28/17 at 16:53 ; Status DC Insulin Human Lispro (HumaLOG INSULIN) See Protocol Table AC SC ; Start at 17:30; Stop 07/28/17 at 17:29 Insulin Human Lispro (HumaLOG INSULIN) See Protocol Table QHS SC ; Start at 21:00; Stop 07/28/17 at 20:59 Magnesium Hydroxide (Milk Of Magnesia) 30 ml BID PO Last administered on 20:30; Start 06/28/17 at 09:00; Stop 07/28/17 at 08:59 Mineral Oil (Fleet Oil Retention Enema) DAILY WI Last administered on 14:01; Start 06/28/17 at 09:00; Stop 07/28/17 at 08:59 Morphine Sulfate (Morphine Sulfate Inj) 2 mg Q2HP PRN IV SEVERE PAIN (PS 8-10) ; Start 06/27/17 at 20:15; Stop 07/04/17 at 20:14 Ondansetron HCl (ZOFRAN INJection) 4 mg Q6HP PRN IV NAUSEA OR VOMITING; Start 06/27/17 at 20:15; Stop 07/27/17 at 20:14 Potassium Chloride 10 meq/ IV Miscellaneous Supplies 100 ml @ 100 mls/hr Q1H IV Last administered on 06/28/17 14:08; Start 06/28/17 at 11:00; Stop at 14:59; Status DC Potassium Chloride/Sodium Chloride 1,000 ml @ 75 mls/hr [id number] IV Last administered on 06/29/17 06:37; Start 06/29/17 at 06:27; Stop 07/29/17 at 06:26 Potassium Chloride (Micro-K Extencaps) 40 meq BID PO Last administered on 20:31; Start 06/28/17 at 09:00; Stop 07/28/17 at 08:59 Sodium Chloride 1,000 ml @ 60 mls/hr [id number] IV Last administered on 20:31; Start 06/27/17 at 20:15; Stop 06/29/17 at 06:28; Status DC Allergies Coded Allergies: Penicillins (Verified Allergy, Unknown, 06/27/17) Pioglitazone (Unverified Allergy, Unknown, NOT KNOWN , 03/18/14) Rosiglitazone (Unverified Allergy, Unknown, UNKNOWN, 03/18/14) Objective Physical Examination Examination GENERAL APPEARANCE:Patient seen, laying in bed, awake, alert, and oriented. Comfortable, in no acute distress. SKIN: Warm and moist. HEENT: NG tube in place, minimal output overnight. NECK: Supple, no thyromegaly. No obvious jugular venous distention. LUNGS: Clear to auscultation bilaterally. No wheezing appreciated. HEART: No chest wall abnormalities. Regular rate and rhythm with no murmurs appreciated. ABDOMEN: Abdomen is markedly rounded, soft, moderately less distended than it was on presentation. Very thin abdominal wall from chronic stretching from the chronicity of his colon distention I think.. EXTREMITIES: Extremities have no deformities. No edema identified. Vital Signs Vital Signs Date Time Temp Pulse Resp B/P (MAP) Pulse Ox O2 Delivery O2 Flow Rate FiO2 06/29/17 04:00 Room Air 06/29/17 04:00 98.5 55 18 101/54 (70) 88 06/28/17 14:57 2.0 I&Os I&O- Last 24 Hours up to 6 AM 06/30/17 06:00 Intake Total 496 ml Output Total 190 ml Balance 306 ml Laboratory Data Labs 24H Laboratory Tests 2 06/28/17 08:33: Nucleated Red Blood Cells % (auto) 0.0, Anion Gap 10, Glomerular Filtration Rate 54.2, Blood Urea Nitrogen 36H, Creatinine 1.34H, Sodium Level 144, Potassium Level 2.9#*L, Chloride Level 104, Carbon Dioxide Level 30, Calcium Level 9.0 06/28/17 09:54: Magnesium Level 2.4 06/28/17 12:29: Bedside Glucose (Misc Panel) 126H 06/28/17 17:19: Bedside Glucose (Misc Panel) 100 06/28/17 20:13: Bedside Glucose (Misc Panel) 107 06/29/17 04:54: Nucleated Red Blood Cells % (auto) 0.0, Anion Gap 9, Glomerular Filtration Rate > 60.0, Blood Urea Nitrogen 35H, Creatinine 1.21, Sodium Level 147H, Potassium Level 2.8*L, Chloride Level 108H, Carbon Dioxide Level 30, Calcium Level 8.1L, Magnesium Level 2.6H CBC/BMP Laboratory Tests 06/28/17 08:33 Red Blood Count 4.58, Mean Corpuscular Volume 96.3 H, Mean Corpuscular Hemoglobin 31.7, Mean Corpuscular Hemoglobin Concent 32.9, Red Cell Distribution Width 15.0 H, Calcium Level 9.0 06/28/17 09:54 06/29/17 04:54 Red Blood Count 3.90 L, Mean Corpuscular Volume 98.5 H, Mean Corpuscular Hemoglobin 32.1, Mean Corpuscular Hemoglobin Concent 32.6, Red Cell Distribution Width 15.3 H, Calcium Level 8.1 L Microbiology Microbiology 06/27/17 Blood Culture - Preliminary, Resulted No growth after 24 hours . All specim... 06/27/17 Blood Culture - Preliminary, Resulted No growth after 24 hours . All specim... Impression Megacolon, chronic Denise syndrome Colonic inertia Hypokalemia He responded belatedly to the neostigmine. Though he probably would have responded much faster if the neostigmine was given as an IV push rather than the drip. Likewise its effect had been reversed to fast with the atropine when his heart rate came down to 50. Otherwise I gave him milk of magnesia as well as fleets enema and the has responded with 2 moderate-sized bowel movements including solid stools reported last bowel movement. His abdomen is moderately less distended though still is quite markedly rounded. I think this is chronic. He does not show any signs of bowel ischemia. At this point he does not need any urgent colonoscopy though he still would recommend a prepped colonoscopy at some point in an elective setting. He probably should be placed on some bowel regimen regularly. I have ordered the nasogastric tube removed and we'll start him on high-fiber diet. At this point hole just intermittently follow him up. Please call if there is some urgent need for reassessment. Plan / VTE VTE Prophylaxis Ordered?: Yes RICCARDO CORONA MD Jun 29, 2017 08:35
[2017-06-29] MEDS: MOM 30ML SUSPENSION UDC PO SCH ×2 (10:17→21:00)
[2017-06-29] MEDS: POTASSIUM CHLORIDE 10 MEQ SR TABLET PO SCH ×2 (10:20→21:00)
[2017-06-29] MEDS: DIGOXIN 0.125 MG TAB PO SCH (10:20)
[2017-06-29] MEDS: ENOXAPARIN 30 MG/0.3 ML SYR (J1650) SC SCH (10:53)
--- NOTE | 2017-06-29 12:54 | IPNPDOC ---
Subjective Date Seen The patient was seen on 06/29/17. Subjective Chief Complaint/HPI The patient is a 82-year-old male admitted with a reason for visit of Bowel Obstruction;Megacolon. Events since last encounter Feeling much better, passing a lot of gas, feeling hungry , abdominal distension says has gone down 100% . no fever or chills, no chest pain , Has some cough with dry throat and soreness which he thinks is due to the NG tube. Still does not have his voice back. Objective Physical Examination General Exam: Positive: Alert, Cooperative, No Acute Distress Eye Exam: Positive: PERRLA, Conjunctiva & lids normal, EOMI, Negative: Sclera icteric ENT Exam: Positive: Atraumatic, Tongue Midline Neck Exam: Positive: Supple, Negative: JVD, thyromegaly Chest Exam: Positive: Clear to auscultation, Normal air movement Heart Exam: Positive: Rate Normal, Regular Rhythm, Normal S1, Normal S2, Negative: Murmurs, Rubs Abdomen Exam: Positive: Normal bowel sounds, Soft, Other (Massive distention still present. ), Negative: Tenderness, Hepatospenomegaly, Mass Extremity Exam: Positive: Normal pulses, Negative: Clubbing, Cyanosis, Edema Skin Exam: Positive: Nl turgor and temperature, Negative: Rash, Breakdown Assessment /Plan Problems (1) Acute dilatation of the colon syndrome Status: Acute Problem Text: Improving, will DC NG tube and start on diet. will continue with regular bowel regimen. 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 Patient most probably has chronic colonic dilatation to begin with which has worsened now. (2) Acute kidney injury (nontraumatic) Status: Acute (3) Aortic stenosis Status: Chronic Problem Text: Has severe aortic stenosis. (4) A-fib Status: Chronic Problem Text: will continue digoxin , will hold xarelto for now. (5) Diabetes Status: Chronic (6) Bladder cancer Status: Chronic Problem Text: History of TURBT and BCG instillation (7) BEN (obstructive sleep apnea) Status: Chronic (8) Pulmonary hypertension Status: Chronic (9) Hypokalemia Status: Acute Problem Text: will continue with K replacements. Plan/VTE VTE Prophylaxis Ordered?: Yes VS, I&O, 24H, Fishbone Vital Signs/I&O Vital Signs Date Time Temp Pulse Resp B/P (MAP) Pulse Ox O2 Delivery O2 Flow Rate FiO2 06/29/17 12:29 98.6 68 18 110/56 (74) 94 Room Air 06/28/17 14:57 2.0 I&O- Last 24 Hours up to 6 AM 06/30/17 06:00 Intake Total 1506 ml Output Total 190 ml Balance 1316 ml Laboratory Data 24H LABS Laboratory Tests 2 06/28/17 17:19: Bedside Glucose (Misc Panel) 100 06/28/17 20:13: Bedside Glucose (Misc Panel) 107 06/29/17 04:54: Nucleated Red Blood Cells % (auto) 0.0, Anion Gap 9, Glomerular Filtration Rate > 60.0, Blood Urea Nitrogen 35H, Creatinine 1.21, Sodium Level 147H, Potassium Level 2.8*L, Chloride Level 108H, Carbon Dioxide Level 30, Calcium Level 8.1L, Magnesium Level 2.6H 06/29/17 11:31: Bedside Glucose (Misc Panel) 158H CBC/BMP Laboratory Tests 06/29/17 04:54 Red Blood Count 3.90 L, Mean Corpuscular Volume 98.5 H, Mean Corpuscular Hemoglobin 32.1, Mean Corpuscular Hemoglobin Concent 32.6, Red Cell Distribution Width 15.3 H, Calcium Level 8.1 L Microbiology Microbiology 06/27/17 Blood Culture - Preliminary, Resulted No growth after 24 hours . All specim... 06/27/17 Blood Culture - Preliminary, Resulted No growth after 24 hours . All specim... SOWMYA KEANE MD Jun 29, 2017 12:54
[2017-06-29 14:35] LABS: CALCIUM LEVEL 8.4 MG/DL (8.8-10.2); CREATININE FOR GFR 1.27 MG/DL (0.70-1.30); GLOMERULAR FILTRATION RATE 57.7 (>35); POTASSIUM SERUM 3.4 MEQ/L (3.5-5.1)
[2017-06-30 00:40] VITALS: BP 96/62
[2017-06-30 04:15] VITALS: BP 126/64
[2017-06-30 05:28] LABS: MEAN CORPUSCULAR HEMOGLOBIN 31.7 pg (27.0-33.0); MEAN CORPUSCULAR HGB CONC 31.6 g/dl (32.0-36.5); MEAN CORPUSCULAR VOLUME 100.2 fl (80.0-96.0); PLATELET COUNT, AUTOMATED 113 10^3/uL (150-450); RED CELL DISTRIBUTION WIDTH 15.1 % (11.5-14.5); WHITE BLOOD COUNT 6.7 10^3/uL (4.0-10.0)
[2017-06-30 05:45] LABS: ANION GAP 8 MEQ/L (8-16); BLOOD UREA NITROGEN 34 MG/DL (7-18); CALCIUM LEVEL 8.1 MG/DL (8.8-10.2); CARBON DIOXIDE LEVEL 26 MEQ/L (21-32); CHLORIDE LEVEL 110 MEQ/L (98-107); CREATININE FOR GFR 1.15 MG/DL (0.70-1.30); GLOMERULAR FILTRATION RATE > 60.0 (>35); GLUCOSE, FASTING 125 MG/DL (83-110); POTASSIUM SERUM 4.2 MEQ/L (3.5-5.1); SODIUM LEVEL 144 MEQ/L (136-145)
[2017-06-30 08:00] VITALS: BP 106/61
[2017-06-30] MEDS: ALBUTEROL SULFATE 2.5 MG/0.5 ML INH NEB SOLN NEB SCH ×2 (08:00→15:28)
[2017-06-30] MEDS: HumaLOG INSULIN (NovoLOG) PER UNIT SC SCH ×4 (08:59→21:00)
[2017-06-30] MEDS: MOM 30ML SUSPENSION UDC PO SCH ×2 (08:59→21:38)
[2017-06-30] MEDS: ENOXAPARIN 30 MG/0.3 ML SYR (J1650) SC SCH (08:59)
[2017-06-30] MEDS: POTASSIUM CHLORIDE 10 MEQ SR TABLET PO SCH ×2 (09:00→21:37)
[2017-06-30] MEDS ORDERED: FLEET OIL RETENTION ENEMA PR PRN (09:00)
[2017-06-30] MEDS: DIGOXIN 0.125 MG TAB PO SCH (09:02)
[2017-06-30] MEDS ORDERED: FUROSEMIDE 100 MG/10 ML VIAL (J1940) IV ONE (10:00)
[2017-06-30 12:00] VITALS: BP 110/59
[2017-06-30 16:00] VITALS: BP 110/60
--- NOTE | 2017-06-30 17:39 | IPNPDOC ---
Date Seen The patient was seen on 06/30/17. 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 Patient is evaluated at [facility] this morning. He has some concerns regarding his diet. Was started on a high fiber diet, but patient is concerned that his current diet contains too much sugar. He is a known diabetic. OBJECTIVE PHYSICAL EXAMINATION: VITAL SIGNS: Please see below. GENERAL: Elderly male, well nourished, well developed, appears stated age, no acute distress HEENT: Atraumatic, normocephalic, PERRL, EOMI, oral mucosa appears pink and moist, nasal septum appears midline, nares are patent CARDIOVASCULAR: Irregularly irregular heart rate and rhythm, no murmur, rub, click RESPIRATORY: Diminished airway excursion throughout, extremely coarse breath sounds bilaterally ABDOMINAL: Severely distended, taut, unable to determine organomegaly, tympanic throughout, tinkling bowel sounds EXTREMITIES: Chronic venous stasis changes noted on bilateral lower extremities , without edema, irregularly irregular pulses appreciated NEUROLOGICAL: CN II-XII grossly intact PSYCHOLOGICAL: Alert and conversant LABORATORY DATA: Please see below. MICROBIOLOGY: Please see below. 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 Abdominal x-ray IMPRESSION: Findings consistent with megacolon. CT abdomen and pelvis without contrast IMPRESSION: 1. Severe gases distention of the colon, consistent with megacolon. These findings are similar to the prior study. Air fluid level is seen in the rectosigmoid colon. No discrete evidence of obstruction or volvulus is seen at the site. Follow-up is recommended as clinically indicated. Barium enema study could be helpful. Colonoscopy may be helpful. 2. Bilateral lower lobe infiltrates. DVT prophylaxis ordered?: Xarelto 20mg orally daily. 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 PROBLEMS: 1. Hoarseness with shortness of breath: One-time dose of Lasix 60mg IV to improve breathing. 2. Megacolon: Continue with high fiber diet + consistent carbohydrate diet. Continue with bowel regimen of MoM and fleet enema. 3. Hypokalemia: Resolved. Continues with potassium supplementation twice a day. 4. Acute kidney injury: Improving. 5. Atrial fibrillation: Continue with Digoxin. Restarted Xarelto as patient as resumed a diet. 6. Diabetes mellitus: Continue with SSI, fingersticks AC/HS, and hypoglycemic protocol. 7. Bladder cancer: History of TURBT and BCG instillation. 8. Aortic stenosis 9. Obstructive sleep apnea 10. Pulmonary hypertension DISPOSITION: Physical therapy evaluated patient and he is not safe for discharge at this time. Continue with current diet and bowel regimen. VS, I&O, 24H, Fishbone Vital Signs/I&O Vital Signs Date Time Temp Pulse Resp B/P (MAP) Pulse Ox O2 Delivery O2 Flow Rate FiO2 06/30/17 16:00 75 Room Air 06/30/17 15:00 93 06/30/17 08:00 97.9 20 106/61 (76) 06/28/17 14:57 2.0 I&O- Last 24 Hours up to 6 AM 07/01/17 06:00 Intake Total 540 ml Output Total 0 ml Balance 540 ml Laboratory Data 24H LABS Laboratory Tests 2 06/29/17 20:53: Bedside Glucose (Misc Panel) 157H 06/30/17 05:15: Nucleated Red Blood Cells % (auto) 0.0, Anion Gap 8, Glomerular Filtration Rate > 60.0, Blood Urea Nitrogen 34H, Creatinine 1.15, Sodium Level 144, Potassium Level 4.2#, Chloride Level 110H, Carbon Dioxide Level 26, Calcium Level 8.1L, Magnesium Level 3.0H 06/30/17 11:52: Bedside Glucose (Misc Panel) 162H CBC/BMP Laboratory Tests 06/30/17 05:15 Red Blood Count 4.10 L, Mean Corpuscular Volume 100.2 H, Mean Corpuscular Hemoglobin 31.7, Mean Corpuscular Hemoglobin Concent 31.6 L, Red Cell Distribution Width 15.1 H, Calcium Level 8.1 L Microbiology Microbiology 06/27/17 Blood Culture - Preliminary, Resulted No Growth after 48 hours. All Specime... 06/27/17 Blood Culture - Preliminary, Resulted No Growth after 48 hours. All Specime... MIGEL SCHILLING DO Jun 30, 2017 17:39
[2017-06-30 19:57] VITALS: BP 113/69
[2017-07-01] VITALS (9 sets, daily range): BP systolic 103–131; BP diastolic 54–78
[2017-07-01 05:29] LABS: MEAN CORPUSCULAR HEMOGLOBIN 31.3 pg (27.0-33.0); MEAN CORPUSCULAR HGB CONC 31.7 g/dl (32.0-36.5); PLATELET COUNT, AUTOMATED 124 10^3/uL (150-450); WHITE BLOOD COUNT 6.2 10^3/uL (4.0-10.0)
[2017-07-01 05:52] LABS: ANION GAP 5 MEQ/L (8-16); BLOOD UREA NITROGEN 28 MG/DL (7-18); CALCIUM LEVEL 7.8 MG/DL (8.8-10.2); CARBON DIOXIDE LEVEL 30 MEQ/L (21-32); CHLORIDE LEVEL 107 MEQ/L (98-107); CREATININE FOR GFR 0.98 MG/DL (0.70-1.30); GLOMERULAR FILTRATION RATE > 60.0 (>35); GLUCOSE, FASTING 121 MG/DL (83-110); MAGNESIUM LEVEL 2.9 MG/DL (1.8-2.4); POTASSIUM SERUM 4.4 MEQ/L (3.5-5.1); SODIUM LEVEL 142 MEQ/L (136-145)
[2017-07-01] MEDS: ALBUTEROL SULFATE 2.5 MG/0.5 ML INH NEB SOLN NEB SCH ×3 (08:01→15:27)
[2017-07-01] MEDS: MOM 30ML SUSPENSION UDC PO SCH ×2 (08:11→20:51)
[2017-07-01] MEDS: HumaLOG INSULIN (NovoLOG) PER UNIT SC SCH ×4 (08:12→20:52)
[2017-07-01] MEDS: DIGOXIN 0.125 MG TAB PO SCH (08:13)
[2017-07-01] MEDS: POTASSIUM CHLORIDE 10 MEQ SR TABLET PO SCH ×2 (08:13→20:51)
[2017-07-01] MEDS: RIVAROXABAN 20 MG TAB (XARELTO) PO SCH (08:13)
--- NOTE | 2017-07-01 09:27 | IPNPDOC ---
Date Seen The patient was seen on 07/01/17. 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 Patient is evaluated at [facility] this morning. He is pleased with the changes to his diet. Continues to be hoarse, but denies shortness of breath or chest pain. States that he although is abdomen continues to be distended it has improved since admission and is soft. He admits that his abdomen is always distended. Patient did not successfully pass a home safety evaluation with physical therapy yesterday. OBJECTIVE PHYSICAL EXAMINATION: VITAL SIGNS: Please see below. GENERAL: Elderly male, well nourished, well developed, appears stated age, no acute distress HEENT: Atraumatic, normocephalic, PERRL, EOMI, oral mucosa appears pink and moist, nasal septum appears midline, nares are patent CARDIOVASCULAR: Irregularly irregular heart rate and rhythm, grade II/ pansystolic murmur, rub, click RESPIRATORY: Clear to auscultation in the upper lung lobes bilaterally, crackles appreciated in the lower lung lobes bilaterally ABDOMINAL: Severely distended, soft, unable to determine organomegaly, tympanic throughout, tinkling bowel sounds which have improved EXTREMITIES: Chronic venous stasis changes noted on bilateral lower extremities , without edema, irregularly irregular pulses appreciated NEUROLOGICAL: CN II-XII grossly intact PSYCHOLOGICAL: Alert and conversant LABORATORY DATA: Please see below. MICROBIOLOGY: Please see below. 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 Abdominal x-ray IMPRESSION: Findings consistent with megacolon. CT abdomen and pelvis without contrast IMPRESSION: 1. Severe gases distention of the colon, consistent with megacolon. These findings are similar to the prior study. Air fluid level is seen in the rectosigmoid colon. No discrete evidence of obstruction or volvulus is seen at the site. Follow-up is recommended as clinically indicated. Barium enema study could be helpful. Colonoscopy may be helpful. 2. Bilateral lower lobe infiltrates. DVT prophylaxis ordered?: Xarelto 20mg orally daily. 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 PROBLEMS: 1. Megacolon: Continue with high fiber diet + consistent carbohydrate diet. Continue with bowel regimen of MoM and fleet enema. 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 2. Hoarseness with pulmonary crackles: No Lasix given at this time as patient' s blood pressure was a little soft. 3. Hypokalemia: Resolved. Continues with potassium supplementation orally twice daily. 4. Acute kidney injury: Resolved. 5. Atrial fibrillation: Continue with Digoxin. Continue with Xarelto. 6. Diabetes mellitus: Continue with SSI, fingersticks AC/HS, and hypoglycemic protocol. 7. Bladder cancer: History of TURBT and BCG instillation. 8. Aortic stenosis 9. Obstructive sleep apnea 10. Pulmonary hypertension DISPOSITION: Continue with physical therapy assessment. Continue with current diet and bowel regimen. VS, I&O, 24H, Fishbone Vital Signs/I&O Vital Signs Date Time Temp Pulse Resp B/P (MAP) Pulse Ox O2 Delivery O2 Flow Rate FiO2 07/01/17 08:13 78 07/01/17 07:56 97.9 22 103/54 (70) 97 Nasal Cannula 2.0 Laboratory Data 24H LABS Laboratory Tests 2 06/30/17 11:52: Bedside Glucose (Misc Panel) 162H 06/30/17 17:24: Bedside Glucose (Misc Panel) 139H 06/30/17 21:29: Bedside Glucose (Misc Panel) 120H 07/01/17 04:51: Anion Gap 5L, Glomerular Filtration Rate > 60.0, Blood Urea Nitrogen 28H, Creatinine 0.98, Sodium Level 142, Potassium Level 4.4, Chloride Level 107, Carbon Dioxide Level 30, Calcium Level 7.8L, Magnesium Level 2.9H 07/01/17 04:52: Nucleated Red Blood Cells % (auto) 0.0 CBC/BMP Laboratory Tests 07/01/17 04:51 Calcium Level 7.8 L 07/01/17 04:52 Red Blood Count 4.02 L, Mean Corpuscular Volume 99.0 H, Mean Corpuscular Hemoglobin 31.3, Mean Corpuscular Hemoglobin Concent 31.7 L, Red Cell Distribution Width 15.0 H Microbiology Microbiology 06/27/17 Blood Culture - Preliminary, Resulted No Growth after 72 hours. All specime... 06/27/17 Blood Culture - Preliminary, Resulted No Growth after 72 hours. All specime... MIGEL SCHILLING DO Jul 01, 2017 09:27
[2017-07-02 04:00] VITALS: BP 161/74
[2017-07-02 05:56] LABS: MEAN CORPUSCULAR HEMOGLOBIN 31.7 pg (27.0-33.0); MEAN CORPUSCULAR HGB CONC 31.5 g/dl (32.0-36.5); MEAN CORPUSCULAR VOLUME 100.8 fl (80.0-96.0); PLATELET COUNT, AUTOMATED 114 10^3/uL (150-450); RED CELL DISTRIBUTION WIDTH 15.3 % (11.5-14.5); WHITE BLOOD COUNT 6.4 10^3/uL (4.0-10.0)
[2017-07-02 06:10] LABS: ANION GAP 5 MEQ/L (8-16); BLOOD UREA NITROGEN 20 MG/DL (7-18); CALCIUM LEVEL 7.9 MG/DL (8.8-10.2); CARBON DIOXIDE LEVEL 30 MEQ/L (21-32); CHLORIDE LEVEL 107 MEQ/L (98-107); CREATININE FOR GFR 0.91 MG/DL (0.70-1.30); GLOMERULAR FILTRATION RATE > 60.0 (>35); GLUCOSE, FASTING 125 MG/DL (83-110); MAGNESIUM LEVEL 3.1 MG/DL (1.8-2.4); POTASSIUM SERUM 4.5 MEQ/L (3.5-5.1); SODIUM LEVEL 142 MEQ/L (136-145)
[2017-07-02] MEDS: ALBUTEROL SULFATE 2.5 MG/0.5 ML INH NEB SOLN NEB SCH ×3 (07:14→15:56)
[2017-07-02] MEDS: HumaLOG INSULIN (NovoLOG) PER UNIT SC SCH ×4 (07:52→20:26)
[2017-07-02] MEDS: MOM 30ML SUSPENSION UDC PO SCH ×2 (07:52→20:26)
[2017-07-02] MEDS: FUROSEMIDE 40 MG/4 ML VIAL (J1940) IV SCH (07:53)
[2017-07-02] MEDS: POTASSIUM CHLORIDE 10 MEQ SR TABLET PO SCH ×2 (07:53→20:26)
[2017-07-02] MEDS: RIVAROXABAN 20 MG TAB (XARELTO) PO SCH (07:54)
[2017-07-02] MEDS: DIGOXIN 0.125 MG TAB PO SCH (07:54)
[2017-07-02 08:00] VITALS: BP 143/64
--- NOTE | 2017-07-02 11:28 | IPNPDOC ---
Subjective Date Seen The patient was seen on 07/02/17. Subjective Chief Complaint/HPI The patient is a 82-year-old male admitted with a reason for visit of Bowel Obstruction;Megacolon. Events since last encounter Does not have any complaints today , having bowel movements, denies any SOB or cough , still has hoarseness of voice. Objective Physical Examination General Exam: Positive: Alert, Cooperative, No Acute Distress Eye Exam: Positive: PERRLA, Conjunctiva & lids normal, EOMI, Negative: Sclera icteric ENT Exam: Positive: Atraumatic, Tongue Midline Neck Exam: Positive: Supple, Negative: JVD, thyromegaly Chest Exam: Positive: Clear to auscultation, Normal air movement Heart Exam: Positive: Rate Normal, Regular Rhythm, Normal S1, Normal S2, Negative: Murmurs, Rubs Abdomen Exam: Positive: Normal bowel sounds, Soft, Other (Massive distention still present. ), Negative: Tenderness, Hepatospenomegaly, Mass Extremity Exam: Positive: Normal pulses, Negative: Clubbing, Cyanosis, Edema Skin Exam: Positive: Nl turgor and temperature, Negative: Rash, Breakdown Assessment /Plan Problems (1) Acute dilatation of the colon syndrome Status: Acute Response to Treatment: Improving Problem Text: improved, though now has chronic colonic dilatation which i think is pretty much his baseline. will continue with regular bowel regimen. high fiber diet. 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 Patient most probably has chronic colonic dilatation to begin with which has worsened now. (2) Acute kidney injury (nontraumatic) Status: Resolved (3) Aortic stenosis Status: Chronic Problem Text: Has severe aortic stenosis. (4) A-fib Status: Chronic Problem Text: will continue digoxin and xarelto (5) Diabetes Status: Chronic (6) Bladder cancer Status: Chronic Problem Text: History of TURBT and BCG instillation (7) BEN (obstructive sleep apnea) Status: Chronic Problem Text: requiring oxygen at night. (8) Pulmonary hypertension Status: Chronic (9) Hypokalemia Status: Acute Problem Text: will continue with K replacements. Plan/VTE VTE Prophylaxis Ordered?: Yes VS, I&O, 24H, Fishbone Vital Signs/I&O Vital Signs Date Time Temp Pulse Resp B/P (MAP) Pulse Ox O2 Delivery O2 Flow Rate FiO2 07/02/17 08:22 Nasal Cannula 2.0 07/02/17 08:00 97.8 72 20 143/64 (90) 98 I&O- Last 24 Hours up to 6 AM 07/03/17 06:00 Intake Total 0 ml Balance 0 ml Laboratory Data 24H LABS Laboratory Tests 2 07/01/17 11:42: Bedside Glucose (Misc Panel) 150H 07/01/17 16:44: Bedside Glucose (Misc Panel) 190H 07/01/17 20:35: Bedside Glucose (Misc Panel) 121H 07/02/17 04:44: Nucleated Red Blood Cells % (auto) 0.0, Anion Gap 5L, Glomerular Filtration Rate > 60.0, Blood Urea Nitrogen 20H, Creatinine 0.91, Sodium Level 142, Potassium Level 4.5, Chloride Level 107, Carbon Dioxide Level 30, Calcium Level 7.9L, Magnesium Level 3.1H CBC/BMP Laboratory Tests 07/02/17 04:44 Red Blood Count 3.91 L, Mean Corpuscular Volume 100.8 H, Mean Corpuscular Hemoglobin 31.7, Mean Corpuscular Hemoglobin Concent 31.5 L, Red Cell Distribution Width 15.3 H, Calcium Level 7.9 L Microbiology Microbiology 06/27/17 Blood Culture - Preliminary, Resulted No Growth after 72 hours. All specime... 06/27/17 Blood Culture - Preliminary, Resulted No Growth after 72 hours. All specime... SOWMYA KEANE MD Jul 02, 2017 11:28
[2017-07-02 12:00] VITALS: BP 126/62
[2017-07-02 22:00] VITALS: BP 137/68
[2017-07-03 06:00] VITALS: BP 129/66
[2017-07-03 06:05] LABS: MEAN CORPUSCULAR HEMOGLOBIN 31.4 pg (27.0-33.0); MEAN CORPUSCULAR HGB CONC 30.8 g/dl (32.0-36.5); PLATELET COUNT, AUTOMATED 118 10^3/uL (150-450); RED CELL DISTRIBUTION WIDTH 15.4 % (11.5-14.5); WHITE BLOOD COUNT 6.6 10^3/uL (4.0-10.0)
[2017-07-03 06:20] LABS: ANION GAP 3 MEQ/L (8-16); BLOOD UREA NITROGEN 20 MG/DL (7-18); CARBON DIOXIDE LEVEL 34 MEQ/L (21-32); CHLORIDE LEVEL 105 MEQ/L (98-107); CREATININE FOR GFR 0.92 MG/DL (0.70-1.30); GLOMERULAR FILTRATION RATE > 60.0 (>35); GLUCOSE, FASTING 117 MG/DL (83-110); MAGNESIUM LEVEL 3.3 MG/DL (1.8-2.4); SODIUM LEVEL 142 MEQ/L (136-145)
[2017-07-03 06:25] LABS: POTASSIUM SERUM 5.3 MEQ/L (3.5-5.1)
[2017-07-03] MEDS: ALBUTEROL SULFATE 2.5 MG/0.5 ML INH NEB SOLN NEB SCH ×4 (07:22→23:30)
[2017-07-03] MEDS: HumaLOG INSULIN (NovoLOG) PER UNIT SC SCH ×4 (07:46→20:53)
[2017-07-03] MEDS: DIGOXIN 0.125 MG TAB PO SCH (08:41)
[2017-07-03] MEDS: MOM 30ML SUSPENSION UDC PO SCH ×2 (08:41→21:10)
[2017-07-03] MEDS: RIVAROXABAN 20 MG TAB (XARELTO) PO SCH (08:41)
[2017-07-03] MEDS: FUROSEMIDE 40 MG/4 ML VIAL (J1940) IV SCH (08:42)
--- NOTE | 2017-07-03 11:18 | IPNPDOC ---
Subjective Date Seen The patient was seen on 07/03/17. Subjective Chief Complaint/HPI The patient is a 82-year-old male admitted with a reason for visit of Bowel Obstruction;Megacolon. Events since last encounter Does not offer any complaints . Says abdomen is soft and at its usual state. having regular bowel movements. continues to have hoarseness of voice. Continues to desaturate during night. Objective Physical Examination General Exam: Positive: Alert, Cooperative, No Acute Distress Eye Exam: Positive: PERRLA, Conjunctiva & lids normal, EOMI, Negative: Sclera icteric ENT Exam: Positive: Atraumatic, Tongue Midline Neck Exam: Positive: Supple, Negative: JVD, thyromegaly Chest Exam: Positive: Clear to auscultation, Normal air movement Heart Exam: Positive: Rate Normal, Regular Rhythm, Normal S1, Normal S2, Negative: Murmurs, Rubs Abdomen Exam: Positive: Normal bowel sounds, Soft, Other (Massive distention still present. ), Negative: Tenderness, Hepatospenomegaly, Mass Extremity Exam: Positive: Normal pulses, Negative: Clubbing, Cyanosis, Edema Skin Exam: Positive: Nl turgor and temperature, Negative: Rash, Breakdown Assessment /Plan Problems (1) Hoarseness of voice Status: Acute Problem Text: will consult ENT. (2) Acute dilatation of the colon syndrome Status: Resolved Problem Text: improved, though now has chronic colonic dilatation which i think is pretty much his baseline. will continue with regular bowel regimen. high fiber diet. 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 Patient most probably has chronic colonic dilatation to begin with (3) Acute kidney injury (nontraumatic) Status: Resolved (4) Aortic stenosis Status: Chronic Problem Text: Has severe aortic stenosis. (5) A-fib Status: Chronic Problem Text: will continue digoxin and xarelto (6) Diabetes Status: Chronic (7) Bladder cancer Status: Chronic Problem Text: History of TURBT and BCG instillation (8) BEN (obstructive sleep apnea) Status: Chronic Problem Text: requiring oxygen at night. refused further work up before. (9) Pulmonary hypertension Status: Chronic (10) Hypokalemia Status: Resolved Problem Text: will stop k Plan/VTE VTE Prophylaxis Ordered?: Yes VS, I&O, 24H, Fishbone Vital Signs/I&O Vital Signs Date Time Temp Pulse Resp B/P (MAP) Pulse Ox O2 Delivery O2 Flow Rate FiO2 07/03/17 08:41 71 07/03/17 07:42 Nasal Cannula 2.0 07/03/17 06:00 98.0 17 129/66 (87) 96 I&O- Last 24 Hours up to 6 AM 07/04/17 06:00 Intake Total 240 ml Balance 240 ml Laboratory Data 24H LABS Laboratory Tests 2 07/02/17 12:08: Bedside Glucose (Misc Panel) 129H 07/02/17 17:00: Bedside Glucose (Misc Panel) 113H 07/02/17 19:57: Bedside Glucose (Misc Panel) 122H 07/03/17 05:28: Nucleated Red Blood Cells % (auto) 0.0, Anion Gap 3L, Glomerular Filtration Rate > 60.0, Blood Urea Nitrogen 20H, Creatinine 0.92, Sodium Level 142, Potassium Level 5.3H, Chloride Level 105, Carbon Dioxide Level 34H, Calcium Level 8.0L, Magnesium Level 3.3H CBC/BMP Laboratory Tests 07/03/17 05:28 Red Blood Count 3.92 L, Mean Corpuscular Volume 102.0 H, Mean Corpuscular Hemoglobin 31.4, Mean Corpuscular Hemoglobin Concent 30.8 L, Red Cell Distribution Width 15.4 H, Calcium Level 8.0 L Microbiology Microbiology 06/27/17 Blood Culture - Final, Complete NO GROWTH AFTER 5 DAYS 06/27/17 Blood Culture - Final, Complete NO GROWTH AFTER 5 DAYS SOWMYA KEANE MD Jul 03, 2017 11:18
[2017-07-03 16:00] VITALS: BP 122/58
[2017-07-03 22:00] VITALS: BP 113/75
[2017-07-04 06:00] VITALS: BP 116/59
[2017-07-04 06:51] LABS: MEAN CORPUSCULAR HEMOGLOBIN 31.4 pg (27.0-33.0); MEAN CORPUSCULAR HGB CONC 31.1 g/dl (32.0-36.5); MEAN CORPUSCULAR VOLUME 101.1 fl (80.0-96.0); PLATELET COUNT, AUTOMATED 108 10^3/uL (150-450); RED CELL DISTRIBUTION WIDTH 15.4 % (11.5-14.5); WHITE BLOOD COUNT 7.7 10^3/uL (4.0-10.0)
[2017-07-04 07:10] LABS: ANION GAP 4 MEQ/L (8-16); BLOOD UREA NITROGEN 20 MG/DL (7-18); CALCIUM LEVEL 7.8 MG/DL (8.8-10.2); CARBON DIOXIDE LEVEL 32 MEQ/L (21-32); CHLORIDE LEVEL 105 MEQ/L (98-107); GLOMERULAR FILTRATION RATE > 60.0 (>35); GLUCOSE, FASTING 122 MG/DL (83-110); MAGNESIUM LEVEL 3.1 MG/DL (1.8-2.4); POTASSIUM SERUM 4.8 MEQ/L (3.5-5.1); SODIUM LEVEL 141 MEQ/L (136-145)
[2017-07-04] MEDS: ALBUTEROL SULFATE 2.5 MG/0.5 ML INH NEB SOLN NEB SCH ×3 (07:22→23:19)
[2017-07-04] MEDS: HumaLOG INSULIN (NovoLOG) PER UNIT SC SCH ×4 (07:42→21:00)
[2017-07-04] MEDS: FUROSEMIDE 40 MG/4 ML VIAL (J1940) IV SCH (08:31)
[2017-07-04] MEDS: DIGOXIN 0.125 MG TAB PO SCH (08:31)
[2017-07-04] MEDS: RIVAROXABAN 20 MG TAB (XARELTO) PO SCH (08:31)
[2017-07-04] MEDS: MOM 30ML SUSPENSION UDC PO SCH ×2 (08:31→21:28)
--- NOTE | 2017-07-04 12:34 | IPNPDOC ---
Subjective Date Seen The patient was seen on 07/04/17. Subjective Chief Complaint/HPI The patient is a 82-year-old male admitted with a reason for visit of Bowel Obstruction;Megacolon. Events since last encounter Patient seen and examined at the bedside. States that he is able to tolerate a by mouth diet, and is regularly passing bowel movements. Denies any acute complaints at this time. Objective Physical Examination General Exam: Positive: Alert, Cooperative, No Acute Distress Eye Exam: Negative: Sclera icteric ENT Exam: Positive: Atraumatic, Mucous membr. moist/pink Neck Exam: Negative: JVD Chest Exam: Positive: Clear to auscultation, Normal air movement Heart Exam: Positive: Rate Normal, Normal S1, Normal S2 Abdomen Exam: Positive: Normal bowel sounds, Soft, Other (Abdomen still distended, however it is soft with no tenderness. 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 Mann--however the patient has declined laryngoscopy/further work up. He states that he will follow up as needed as an outpatient Acute Kidney Injury, Resolved s/p IVF Hydration Severe Aortic Stenosis noted on ECHO in 2013 Patient has declined further intervention Atrial-Fibrillation Rate controlled on Digoxin Continue Xarelto for AC Diabetes Continue Insulin sliding scale History of Bladder cancer s/p TURBT and BCG instillation BEN (obstructive sleep apnea) Requiring oxygen at night Refused further work up Pulmonary hypertension DVT Prophylaxis On Xarelto Disposition--pending clinical improvement. PT on board for functional optimization. VS, I&O, 24H, Fishbone Vital Signs/I&O Vital Signs Date Time Temp Pulse Resp B/P (MAP) Pulse Ox O2 Delivery O2 Flow Rate FiO2 07/04/17 11:16 71 92 Nasal Cannula 2.0 07/04/17 06:00 98.5 19 116/59 (78) I&O- Last 24 Hours up to 6 AM 07/05/17 06:00 Intake Total 480 ml Balance 480 ml Laboratory Data 24H LABS Laboratory Tests 2 07/03/17 16:52: Bedside Glucose (Misc Panel) 110 07/03/17 20:45: Bedside Glucose (Misc Panel) 157H 07/04/17 06:15: Nucleated Red Blood Cells % (auto) 0.0, Anion Gap 4L, Glomerular Filtration Rate > 60.0, Blood Urea Nitrogen 20H, Creatinine 0.90, Sodium Level 141, Potassium Level 4.8, Chloride Level 105, Carbon Dioxide Level 32, Calcium Level 7.8L, Magnesium Level 3.1H CBC/BMP Laboratory Tests 07/04/17 06:15 Red Blood Count 3.76 L, Mean Corpuscular Volume 101.1 H, Mean Corpuscular Hemoglobin 31.4, Mean Corpuscular Hemoglobin Concent 31.1 L, Red Cell Distribution Width 15.4 H, Calcium Level 7.8 L Microbiology Microbiology 06/27/17 Blood Culture - Final, Complete NO GROWTH AFTER 5 DAYS 06/27/17 Blood Culture - Final, Complete NO GROWTH AFTER 5 DAYS JOHANNE RIZO MD Jul 04, 2017 12:34
[2017-07-04 14:00] VITALS: BP 114/56
[2017-07-04 22:00] VITALS: BP 103/56
[2017-07-05 06:00] VITALS: BP 114/64
[2017-07-05] MEDS: ALBUTEROL SULFATE 2.5 MG/0.5 ML INH NEB SOLN NEB SCH ×3 (07:15→23:54)
[2017-07-05 07:21] LABS: MEAN CORPUSCULAR HEMOGLOBIN 32.1 pg (27.0-33.0); MEAN CORPUSCULAR HGB CONC 31.5 g/dl (32.0-36.5); MEAN CORPUSCULAR VOLUME 101.9 fl (80.0-96.0); PLATELET COUNT, AUTOMATED 114 10^3/uL (150-450); RED CELL DISTRIBUTION WIDTH 15.3 % (11.5-14.5); WHITE BLOOD COUNT 8.4 10^3/uL (4.0-10.0)
[2017-07-05 08:15] LABS: ANION GAP 3 MEQ/L (8-16); BLOOD UREA NITROGEN 20 MG/DL (7-18); CALCIUM LEVEL 7.8 MG/DL (8.8-10.2); CARBON DIOXIDE LEVEL 35 MEQ/L (21-32); CHLORIDE LEVEL 102 MEQ/L (98-107); CREATININE FOR GFR 0.93 MG/DL (0.70-1.30); GLOMERULAR FILTRATION RATE > 60.0 (>35); GLUCOSE, FASTING 135 MG/DL (83-110); MAGNESIUM LEVEL 3.2 MG/DL (1.8-2.4); POTASSIUM SERUM 4.5 MEQ/L (3.5-5.1); SODIUM LEVEL 140 MEQ/L (136-145)
[2017-07-05] MEDS: RIVAROXABAN 20 MG TAB (XARELTO) PO SCH (09:01)
[2017-07-05] MEDS: FUROSEMIDE 40 MG/4 ML VIAL (J1940) IV SCH (09:01)
[2017-07-05] MEDS: MOM 30ML SUSPENSION UDC PO SCH ×2 (09:01→20:35)
[2017-07-05] MEDS: DIGOXIN 0.125 MG TAB PO SCH (09:02)
[2017-07-05] MEDS: HumaLOG INSULIN (NovoLOG) PER UNIT SC SCH ×4 (09:03→20:12)
--- NOTE | 2017-07-05 11:38 | IPNPDOC ---
Subjective Date Seen The patient was seen on 07/05/17. Subjective Chief Complaint/HPI The patient is a 82-year-old male admitted with a reason for visit of Bowel Obstruction;Megacolon. Events since last encounter Patient seen and examined this. States that he is reluctant to work with physical therapy, as "it will not change anything and that I do not use the stairs at my home." However, after speaking with case management/PFS, the patient's daughter does voice concerns about the patient being able to go up the stairs to his home. No other acute complaints offered. Objective Physical Examination General Exam: Positive: Alert, Cooperative, No Acute Distress Eye Exam: Negative: Sclera icteric ENT Exam: Positive: Atraumatic, Mucous membr. moist/pink Neck Exam: Negative: JVD Chest Exam: Positive: Clear to auscultation, Normal air movement Heart Exam: Positive: Rate Normal, Normal S1, Normal S2 Abdomen Exam: Positive: Normal bowel sounds, Soft, Other (Abdomen still distended, however it is soft with no tenderness. 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 Mann--however the patient has declined laryngoscopy/further work up. He states that he will follow up as needed as an outpatient Acute Kidney Injury, Resolved s/p IVF Hydration Severe Aortic Stenosis noted on ECHO in 2013 Patient has declined further intervention Atrial-Fibrillation Rate controlled on Digoxin Continue Xarelto for AC Diabetes Continue Insulin sliding scale History of Bladder cancer s/p TURBT and BCG instillation BEN (obstructive sleep apnea) Requiring oxygen at night Refused further work up Pulmonary hypertension DVT Prophylaxis On Xarelto Disposition--pending clinical improvement. PT on board for functional optimization. VS, I&O, 24H, Fishbone Vital Signs/I&O Vital Signs Date Time Temp Pulse Resp B/P (MAP) Pulse Ox O2 Delivery O2 Flow Rate FiO2 07/05/17 09:02 67 07/05/17 09:00 16 98 Nasal Cannula 2.0 07/05/17 06:00 98.6 114/64 (81) I&O- Last 24 Hours up to 6 AM 07/06/17 06:00 Intake Total 240 ml Output Total 0 ml Balance 240 ml Laboratory Data 24H LABS Laboratory Tests 2 07/04/17 16:51: Bedside Glucose (Misc Panel) 183H 07/04/17 20:26: Bedside Glucose (Misc Panel) 169H 07/05/17 07:01: Nucleated Red Blood Cells % (auto) 0.0, Anion Gap 3L, Glomerular Filtration Rate > 60.0, Blood Urea Nitrogen 20H, Creatinine 0.93, Sodium Level 140, Potassium Level 4.5, Chloride Level 102, Carbon Dioxide Level 35H, Calcium Level 7.8L, Magnesium Level 3.2H 07/05/17 11:14: Bedside Glucose (Misc Panel) 134H CBC/BMP Laboratory Tests 07/05/17 07:01 Red Blood Count 3.61 L, Mean Corpuscular Volume 101.9 H, Mean Corpuscular Hemoglobin 32.1, Mean Corpuscular Hemoglobin Concent 31.5 L, Red Cell Distribution Width 15.3 H, Calcium Level 7.8 L Microbiology Microbiology 06/27/17 Blood Culture - Final, Complete NO GROWTH AFTER 5 DAYS 06/27/17 Blood Culture - Final, Complete NO GROWTH AFTER 5 DAYS JOHANNE RIZO MD Jul 05, 2017 11:38
[2017-07-05 14:00] VITALS: BP 99/57
[2017-07-05 22:00] VITALS: BP 126/81
[2017-07-06 06:00] VITALS: BP 133/61
[2017-07-06] MEDS: ALBUTEROL SULFATE 2.5 MG/0.5 ML INH NEB SOLN NEB SCH ×2 (07:26→15:59)
[2017-07-06] MEDS: FUROSEMIDE 40 MG/4 ML VIAL (J1940) IV SCH (09:40)
[2017-07-06] MEDS: HumaLOG INSULIN (NovoLOG) PER UNIT SC SCH ×2 (09:40→13:10)
[2017-07-06] MEDS: DIGOXIN 0.125 MG TAB PO SCH (09:41)
[2017-07-06] MEDS: RIVAROXABAN 20 MG TAB (XARELTO) PO SCH (09:42)
[2017-07-06] MEDS: MOM 30ML SUSPENSION UDC PO SCH (09:42)
--- NOTE | 2017-07-06 11:07 | IPNPDOC ---
Subjective Date Seen The patient was seen on 07/06/17. Subjective Chief Complaint/HPI The patient is a 82-year-old male admitted with a reason for visit of Bowel Obstruction;Megacolon. Events since last encounter Patient seen and examined at the bedside. Denies any acute complaints this morning. No overnight events noted. Objective Physical Examination General Exam: Positive: Alert, Cooperative, No Acute Distress Eye Exam: Negative: Sclera icteric ENT Exam: Positive: Atraumatic, Mucous membr. moist/pink Neck Exam: Negative: JVD Chest Exam: Positive: Clear to auscultation, Normal air movement Heart Exam: Positive: Rate Normal, Normal S1, Normal S2 Abdomen Exam: Positive: Normal bowel sounds, Soft, Other (Abdomen still distended, however it is soft with no tenderness. 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 Mann--however the patient has declined laryngoscopy/further work up. He states that he will follow up as needed as an outpatient Acute Kidney Injury, Resolved s/p IVF Hydration Severe Aortic Stenosis noted on ECHO in 2013 Patient has declined further intervention Atrial-Fibrillation Rate controlled on Digoxin Continue Xarelto for AC Diabetes Continue Insulin sliding scale History of Bladder cancer s/p TURBT and BCG instillation BEN (obstructive sleep apnea) Requiring oxygen at night Refused further work up Pulmonary hypertension DVT Prophylaxis On Xarelto Disposition--pending clinical improvement. PT on board for functional optimization. VS, I&O, 24H, Fishbone Vital Signs/I&O Vital Signs Date Time Temp Pulse Resp B/P (MAP) Pulse Ox O2 Delivery O2 Flow Rate FiO2 07/06/17 09:41 72 07/06/17 06:00 99.6 18 133/61 (85) 96 Nasal Cannula 2.0 I&O- Last 24 Hours up to 6 AM 12/15/17 06:00 Intake Total 240 ml Output Total 0 ml Balance 240 ml Laboratory Data 24H LABS Laboratory Tests 2 07/05/17 11:14: Bedside Glucose (Misc Panel) 134H 07/05/17 16:36: Bedside Glucose (Misc Panel) 94 07/05/17 20:09: Bedside Glucose (Misc Panel) 176H 07/06/17 06:03: Bedside Glucose (Misc Panel) 115H Microbiology Microbiology 06/27/17 Blood Culture - Final, Complete NO GROWTH AFTER 5 DAYS 06/27/17 Blood Culture - Final, Complete NO GROWTH AFTER 5 DAYS JOHANNE RIZO MD Jul 06, 2017 11:07
[2017-07-06 14:00] VITALS: BP 102/62
--- NOTE | 2017-07-06 16:18 | DS.PDOC ---
Discharge Summary General Date of Admission Jun 27, 2017 at 20:08 Date of Discharge 07/06/17 Specialist/Consultants Involve Dr. Whittington of Surgery, Dr. Mann of ENT Discharge Summary PROCEDURES PERFORMED DURING STAY: None. ADMITTING/DISCHARGE DIAGNOSES: Acute on Chronic Dilatation of the Colon, resolved Hoarseness of voice Acute kidney injury, resolved Atrial fibrillation History of Bladder cancer COMPLICATIONS/CHIEF COMPLAINT: Bowel Obstruction;Megacolon. HISTORY OF PRESENT ILLNESS: . 82-year-old male with past medical history of chronic kidney disease, stage III , atrial fibrillation, diabetes, obstructive sleep apnea (BEN), bladder cancer status post transurethral resection of bladder tumor (TURBT) presented to [facility] on 06/23/2017 for worsening abdominal distention. The patient stated that he notice an increase of his waist size. He also noted right -sided abdominal pain. He denied any nausea and vomiting, but noticed that he had been having a small amount of liquid stool for the past 1 week. He denied any complaints of fevers, chills, chest pain, palpitations, or any sick contacts. In the ER, a CT scan of the abdomen/pelvis revealed severe gaseous distention of the colon, consistent with megacolon. General surgery was consulted in the ER , and recommended that the patient be admitted to the medical service for further observation. During hospitalization, the patient was optimized on a bowel regimen by general surgery. The patient's abdominal distention/pain subsequently was relieved. At this time, the patient is able to tolerate a by mouth diet and is passing BMs regularly without any acute complaints. In addition, the patient also was complaining of hoarseness of his voice while he was hospitalized, he was evaluated by an ear nose and throat doctor. However, the patient refused a laryngoscopy and further workup for this. According to the patient, he has had this problem for years and stated that he would not want any further workup for this including a laryngoscopy. At this time, the patient states that he is feeling much better and is eager to return home. The patient has been cleared by physical therapy to do so. I've advised the patient to follow-up with his primary care physician within 7 days, and to follow-up with ENT if he changes his mind about a laryngoscopy. In addition, the patient has been consulted to return to the ER for any acute emergencies. DISCHARGE MEDICATIONS: Please see below. ALLERGIES: Please see below. PHYSICAL EXAMINATION ON DISCHARGE: VITAL SIGNS: Please see below. General Exam: Positive: Alert, Cooperative, No Acute Distress Eye Exam: Negative: Sclera icteric ENT Exam: Positive: Atraumatic, Mucous membr. moist/pink Neck Exam: Negative: JVD Chest Exam: Positive: Clear to auscultation, Normal air movement Heart Exam: Positive: Rate Normal, Normal S1, Normal S2 Abdomen Exam: Positive: Normal bowel sounds, Soft, Other (Abdomen distended, however it is soft with no tenderness. Reported to be at patient's baseline), Negative: Tenderness Extremity Exam: Positive: Clubbing, Negative: Tenderness, Swelling Skin Exam: Negative: Rash, Breakdown LABORATORY DATA: Please see below. IMAGING: CT of the abdomen and pelvis without contrast Clinical statement: Pain. Possible volvulus. Technique: Multiple axial CT images were obtained from the base of the lungs to the floor of the pelvis utilizing 5 mm axial slices without administration of contrast. Coronal and sagittal reconstructions were also obtained. Comparison: 03/18/2014. Findings: Chest: The visualized lung bases demonstrate bilateral lower lobe infiltrates. Abdomen: The kidneys are normal in size bilaterally. There is no evidence of hydronephrosis or nephrolithiasis. The liver, spleen, pancreas, gallbladder and adrenal glands are unremarkable. The aorta demonstrates normal caliber and contour. There is no abdominal lymphadenopathy or ascites. Pelvis: Severe megacolon with diffuse gaseous distention is noted. Mild amount of stool is seen in the right colon. A large fluid level is seen in the rectosigmoid colon. A focal site of obstruction is identified. The urinary bladder is within normal limits. There is no pelvic lymphadenopathy or ascites. The other pelvic structures appear unremarkable. Bones: There are no suspicious osseous abnormalities seen. Impression: 1. Severe gases distention of the colon, consistent with megacolon. These findings are similar to the prior study. Air fluid level is seen in the rectosigmoid colon. No discrete evidence of obstruction or volvulus is seen at the site. Follow-up is recommended as clinically indicated. Barium enema study could be helpful. Colonoscopy may be helpful. 2. Bilateral lower lobe infiltrates. PROGNOSIS: Poor long-term prognosis ACTIVITY: As tolerated. DIET: . 2 g low sodium diet DISCHARGE PLAN: DISPOSITION: . Home DISCHARGE INSTRUCTIONS: I've advised the patient to follow-up with his primary care physician within 7 days, and to follow-up with ENT if he changes his mind about a laryngoscopy. In addition, the patient has been consulted to return to the ER for any acute emergencies. DISCHARGE CONDITION: Stable. TIME SPENT ON DISCHARGE: Greater than 30 minutes. Vital Signs/I&Os Vital Signs Date Time Temp Pulse Resp B/P (MAP) Pulse Ox O2 Delivery O2 Flow Rate FiO2 07/06/17 15:14 93 Room Air 07/06/17 14:00 99.5 60 18 102/62 (75) 07/06/17 06:00 2.0 I&O- Last 24 Hours up to 6 AM 07/07/17 06:00 Intake Total 480 ml Output Total 0 ml Balance 480 ml Laboratory Data Labs 24H Laboratory Tests 2 07/05/17 16:36: Bedside Glucose (Misc Panel) 94 07/05/17 20:09: Bedside Glucose (Misc Panel) 176H 07/06/17 06:03: Bedside Glucose (Misc Panel) 115H 07/06/17 11:41: Bedside Glucose (Misc Panel) 136H FSBS Laboratory Tests Test 07/05/17 16:36 07/05/17 20:09 07/06/17 06:03 07/06/17 11:41 Range/Units Bedside Glucose (Misc Panel) 94 176 115 136 83-110 MG/DL Microbiology Microbiology 06/27/17 Blood Culture - Final, Complete NO GROWTH AFTER 5 DAYS 06/27/17 Blood Culture - Final, Complete NO GROWTH AFTER 5 DAYS Discharge Medications Scheduled Digoxin (Digoxin) 0.125 Mg Tab, 0.125 MG PO DAILY, (Reported) Insulin Detemir (Levemir Flexpen) 100 Unit/Ml Inj, 12 UNITS SC QPM, (Reported) Linaclotide Base (Linzess) 290 Mcg Cap, 290 MCG PO DAILY, (Reported) Potassium Chloride (Klor-Con M20) 20 Meq Tabcr, 60 MEQ PO DAILY, (Reported) Rivaroxaban (Xarelto) 20 Mg Tab, 20 MG PO DAILY, (Reported) Torsemide (Torsemide) 100 Mg Tab, 100 MG PO DAILY, (Reported) TAKES WITH 40MG DOSE FOR TOTAL OF 140MG Torsemide (Torsemide) 20 Mg Tab, 40 MG PO DAILY, (Reported) TAKES WITH 100MG DOSE FOR TOTAL 140MG Scheduled PRN Albuterol Sulfate (Proair Hfa) 108 Mcg/Act Aer, 2 PUFFS IN Q4HP PRN for RESPIRATORY DISTRESS, (Reported) Allergies Coded Allergies: Penicillins (Verified Allergy, Unknown, 06/27/17) Pioglitazone (Unverified Allergy, Unknown, NOT KNOWN , 03/18/14) Rosiglitazone (Unverified Allergy, Unknown, UNKNOWN, 03/18/14) JOHANNE RIZO MD Jul 06, 2017 16:18
== END 2017-07-06 17:10 | disposition home or self-care (01) | DRG 394 ==
LOC: M ED 15:09 → EDBEDREQSVC 18:40 → M ED INP 20:08 → M PCU 06-28 15:47 → M MSPAV 07-02 15:28
PROVIDERS: ADMIT Internal Medicine; ATTEND Internal Medicine
DX: K59.39 Other megacolon (principal); N17.9 Acute kidney failure, unspecified; Z66 Do not resuscitate; N18.3 Chronic kidney disease, stage 3 (moderate); K59.8 Other specified functional intestinal disorders; I48.91 Unspecified atrial fibrillation; E11.22 Type 2 diabetes mellitus with diabetic chronic kidney disease; G47.33 Obstructive sleep apnea (adult) (pediatric); E87.6 Hypokalemia; E11.40 Type 2 diabetes mellitus with diabetic neuropathy, unspecified; Z85.828 Personal history of other malignant neoplasm of skin; Z85.51 Personal history of malignant neoplasm of bladder; Z79.4 Long term (current) use of insulin; Z79.01 Long term (current) use of anticoagulants; Z79.899 Other long term (current) drug therapy; Z87.891 Personal history of nicotine dependence; Z91.19 Patient's noncompliance with other medical treatment and regimen; Z99.89 Dependence on other enabling machines and devices; Z88.0 Allergy status to penicillin; Z88.8 Allergy status to other drugs, medicaments and biological substances